=== PATIENT | female | born 1960 | race American Indian/Alaskan Native ===

== ENCOUNTER 2016-07-24 09:04 | Outpatient (CLI) | payer OTHER ==
--- NOTE | 2016-07-24 09:50 | XRay Report ---
ROUTINE CHEST, TWO VIEWS: HISTORY: Positive PPD. The trachea, heart, mediastinal contour, lung hernandez and bony thorax are unremarkable. IMPRESSION: Unremarkable chest x-ray. No significant change since 05/08/13.
== END 2016-07-24 09:05 | disposition home or self-care (01) ==
LOC: XRAY 09:04
DX: R76.11 Nonspecific reaction to tuberculin skin test without active tuberculosis (principal)
CPT/HCPCS: 71020